=== PATIENT | male | born 1990 | race Caucasian/White ===

== ENCOUNTER 2017-01-19 13:56 | Emergency (ER) | payer SELFPAY ==
[2017-01-19] MEDS ORDERED: Ibuprofen TAB* 600 MG PO ONE (14:21)
--- NOTE | 2017-01-19 14:55 | RAD ---
Indication: Right knee pain. 4 views of the right knee demonstrates no fracture. The medial pole of the patella demonstrates increased lucency. No joint effusion is noted. IMPRESSION: No fracture is identified.
--- NOTE | 2017-01-19 15:36 | ED ---
Lower Extremity - History of Current Complaint Chief Complaint: EDExtremityLower Stated Complaint: RT KNEE INJURY Time Seen by Provider: 01/19/17 14:21 Pain Intensity: 8 - Allergies/Home Medications Allergies/Adverse Reactions: Allergies Allergy/AdvReac Type Severity Reaction Status Date / Time No Known Allergies Allergy Verified 01/19/17 13:59 PMH/Surg Hx/FS Hx/Imm Hx Cardiovascular History: Denies: Hx Pacemaker/ICD Musculoskeletal History: Reports: Hx Arthritis - right knee Sensory History: Reports: Hx Contacts or Glasses - glasses Denies: Hx Hearing Aid Opthamlomology History: Reports: Hx Contacts or Glasses - glasses Psychiatric History: Denies: Hx Panic Disorder - Surgical History Surgery Procedure, Year, and Place: RT KNEE ARTHROSCOPY PATELLA SURGERY FOR [place]LOCATION 2007[place] [facility] [place] Anesthesia Reactions: No Infectious Disease History: No Infectious Disease History: Denies: Traveled Outside the [place] in Last 30 Days - Social History Alcohol Use: None Substance Use Type: Reports: None Smoking Status (MU): Former Smoker Physical Exam Vital Signs On Initial Exam: Initial Vitals Temp Pulse Resp BP Pulse Ox 98.4 F 80 18 128/81 98 01/19/17 13:59 01/19/17 13:59 01/19/17 13:59 01/19/17 13:59 01/19/17 13:59 BP improved: 128/81 Diagnostics - Vital Signs Vital Signs Temp Pulse Resp BP Pulse Ox 01/19/17 14:23 99 F 84 16 148/82 98 01/19/17 13:59 98.4 F 80 18 128/81 98 - Laboratory Lab Statement: Any lab studies that have been ordered have been reviewed, and results considered in the medical decision making process. - Radiology right knee Xray Interpretation: No Acute Changes - No fracture is identified. Radiology Interpretation Completed By: Radiologist Lower Extremity Course/Dx - Diagnoses Provider Diagnoses: Right knee sprain, Right knee pain Discharge - Discharge Plan Condition: Stable Disposition: HOME Patient Education Materials: Knee Sprain (ED), Knee Immobilizer (ED) Referrals: Faraz Orellana MD [Primary Care Provider] - Faraz Henao MD [Medical Doctor] - Additional Instructions: Wear knee immobilizer and use crutches until symptoms improve. Take ibuprofen 600-800mg every 6-8 hours, with food, for pain and inflammation. Follow up and make an appointment with ortho if symptoms worsen or do not improve. Rest, ice and elevate. If new symptoms or worsening symptoms please seek medical attention promptly.
[2017-01-19 16:43] VITALS: BP 133/74
== END 2017-01-19 16:44 | disposition home or self-care (01) ==
LOC: ED 13:56
DX: S83.91XA Sprain of unspecified site of right knee, initial encounter (principal); M25.561 Pain in right knee; X58.XXXA Exposure to other specified factors, initial encounter; Y93.9 Activity, unspecified; Y92.9 Unspecified place or not applicable
CPT/HCPCS: 99282; A9270-GY

== ENCOUNTER 2017-03-31 21:25 | Emergency (ER) | payer SELFPAY ==
[2017-03-31] MEDS ORDERED: Amoxicillin/Clavulanate TAB* 875 MG PO ONE (21:54)
[2017-03-31] MEDS ORDERED: predniSONE TAB* 20 MG PO ONE (21:54)
[2017-03-31] MEDS ORDERED: Ibuprofen TAB* 800 MG PO ONE (21:54)
--- NOTE | 2017-03-31 22:02 | ED ---
Juanita Carrillo Jason, scribed for Beryl Breen MD on 03/31/17 at 2150 . Throat Pain/Nasal Congestion - HPI Summary HPI Summary: This patient is a 26 year old M presenting to [facility] [place] accompanied by female with a chief complaint of sore throat since 2 days ago. The patient states that he has a sore throat and noticed white spots on the back of his throat. The patient rates the pain 6/10 in severity. Symptoms aggravated by nothing. Symptoms alleviated by nothing. Patient reports chills. Patient denies fever. - History of Current Complaint Chief Complaint: EDThroatPain Time Seen by Provider: 03/31/17 21:44 Hx Obtained From: Patient Onset/Duration: Gradual Onset, Lasting Days - since 2 days ago, Still Present Associated Signs And Symptoms: Positive: Negative - fever Cough: None - Allergies/Home Medications Allergies/Adverse Reactions: Allergies Allergy/AdvReac Type Severity Reaction Status Date / Time No Known Allergies Allergy Verified 03/31/17 21:29 PMH/Surg Hx/FS Hx/Imm Hx Previously Healthy: No Endocrine/Hematology History: Denies: Hx Diabetes Cardiovascular History: Denies: Hx Pacemaker/ICD Musculoskeletal History: Reports: Hx Arthritis - right knee, Other Musculoskeletal History - knee surgery/injury patella Sensory History: Reports: Hx Contacts or Glasses - glasses Denies: Hx Hearing Aid Opthamlomology History: Reports: Hx Contacts or Glasses - glasses Psychiatric History: Denies: Hx Panic Disorder - Surgical History Surgery Procedure, Year, and Place: RT KNEE ARTHROSCOPY PATELLA SURGERY FOR DISLOCATION 2007- [facility] [place] Anesthesia Reactions: No Infectious Disease History: No Infectious Disease History: Denies: Traveled Outside the [place] in Last 30 Days - Family History Known Family History: Positive: Hypertension, Diabetes - Social History Occupation: Unemployed Lives: Alone Alcohol Use: None Substance Use Type: Reports: None Smoking Status (MU): Former Smoker Review of Systems Positive: Chills. Negative: Fever Positive: Sore Throat All Other Systems Reviewed And Are Negative: Yes Physical Exam - Summary Physical Exam Summary: VITAL SIGNS: Reviewed. GENERAL: ~Patient is a well-developed and nourished male who is lying comfortable in the stretcher. Patient is not in any acute respiratory distress. HEAD AND FACE: No signs of trauma. No ecchymosis, hematomas or skull depressions. No sinus tenderness. EYES: PERRLA, EOMI x 2, No injected conjunctiva, no nystagmus. EARS: Hearing grossly intact. Ear canals and tympanic membranes are within normal limits. MOUTH: Oropharynx within normal limits. Pharyngeal hyperemia with exudate. NECK: Supple, trachea is midline, no adenopathy, no JVD, no carotid bruit, no c- spine tenderness, neck with full ROM. CHEST: Symmetric, no tenderness at palpation LUNGS: Clear to auscultation bilaterally. No wheezing or crackles. CVS: Regular rate and rhythm, S1 and S2 present, no murmurs or gallops appreciated. ABDOMEN: Soft, non-tender. No signs of distention. No rebound no guarding, and no masses palpated. Bowel sounds are normal. EXTREMITIES: FROM in all major joints, no edema, no cyanosis or clubbing. NEURO: Alert and oriented x 3. No acute neurological deficits. Speech is normal and follows commands. SKIN: Dry and warm Triage Information Reviewed: Yes Vital Signs On Initial Exam: Initial Vitals Temp Pulse Resp BP Pulse Ox 98.2 F 84 14 137/86 100 03/31/17 21:27 03/31/17 21:27 03/31/17 21:27 03/31/17 21:27 03/31/17 21:27 Vital Signs Reviewed: Yes Diagnostics - Vital Signs Vital Signs Temp Pulse Resp BP Pulse Ox 03/31/17 21:27 98.2 F 84 14 137/86 100 - Laboratory Lab Statement: Any lab studies that have been ordered have been reviewed, and results considered in the medical decision making process. EENT Course/Dx - Course Course Of Treatment: This patient is a 26 year old M presenting to [facility] [place] accompanied by female with a chief complaint of sore throat since 2 days ago. The patient states that he has a sore throat and noticed white spots on the back of his throat. The patient rates the pain 6/10 in severity. Symptoms aggravated by nothing. Symptoms alleviated by nothing. Patient reports chills. Patient denies fever. Assessment/Plan: In the ED course the patient was given Amoxicillin, ibuprofen, and prednisone. Patient will be discharged and follow up from PCP. The patient is agreeable with this plan. Dx of acute pharyngitis. - Diagnoses Provider Diagnoses: Acute pharyngitis Discharge - Discharge Plan Condition: Stable Disposition: HOME Referrals: Faraz Orellana MD [Primary Care Provider] - 3 Days The documentation as recorded by the Juanita edgar Jason accurately reflects the service I personally performed and the decisions made by me, Beryl Breen MD.
[2017-03-31 22:16] VITALS: BP 139/100
== END 2017-03-31 22:13 | disposition home or self-care (01) ==
LOC: ED 21:25
DX: J02.9 Acute pharyngitis, unspecified (principal); R68.83 Chills (without fever); Z87.891 Personal history of nicotine dependence
CPT/HCPCS: 99282; A9270-GY; J7512

== ENCOUNTER → 2018-07-30 19:05 | Emergency (ER) | payer SELFPAY ==
--- NOTE | 2018-07-30 20:29 | ED ---
Upper Extremity Pain - HPI Summary HPI Summary: 27-year-old male presents with right hand injury a week ago. He states that she got jammed by a wheelchair. Hurts over his fourth and fifth metacarpal. He admits to occasional numbness and tingling. No decrease in quality review trainer strength. No weakness. He is right-handed. Denies any previous fracture to the area. Is not currently working. Has been taking ibuprofen and placing ice on the area. - History of Current Complaint Chief Complaint: EDExtremityUpper Stated Complaint: "RT HAND INJURY PER PT" Time Seen by Provider: 07/30/18 19:51 - Allergies/Home Medications Allergies/Adverse Reactions: Allergies Allergy/AdvReac Type Severity Reaction Status Date / Time No Known Allergies Allergy Verified 03/31/17 21:29 Home Medications: Home Medications NK [No Home Medications Reported] 07/30/18 [History Confirmed 07/30/18] PMH/Surg Hx/FS Hx/Imm Hx Endocrine/Hematology History: Denies: Hx Diabetes Cardiovascular History: Denies: Hx Pacemaker/ICD Musculoskeletal History: Reports: Hx Arthritis - right knee, Other Musculoskeletal History - knee surgery/injury patella Sensory History: Reports: Hx Contacts or Glasses - glasses Denies: Hx Hearing Aid Opthamlomology History: Reports: Hx Contacts or Glasses - glasses Psychiatric History: Denies: Hx Panic Disorder - Surgical History Surgery Procedure, Year, and Place: RT KNEE ARTHROSCOPY [place]ATELLA [place] [facility] [place] Anesthesia Reactions: No Infectious Disease History: No Infectious Disease History: Denies: Traveled Outside the [place] in Last 30 Days - Family History Known Family History: Positive: None, Hypertension, Diabetes - Social History Alcohol Use: None Substance Use Type: Reports: None Smoking Status (MU): Former Smoker Review of Systems Negative: Fever Negative: Chest Pain Negative: Shortness Of Breath Positive: Myalgia - right hand pain All Other Systems Reviewed And Are Negative: Yes Physical Exam Triage Information Reviewed: Yes Vital Signs On Initial Exam: Initial Vitals Temp Pulse Resp BP Pulse Ox 99.3 F 75 16 134/77 98 07/30/18 19:18 07/30/18 19:18 07/30/18 19:18 07/30/18 19:18 07/30/18 19:18 Vital Signs Reviewed: Yes Appearance: Positive: Well-Appearing Skin: Positive: Warm, Dry Head/Face: Positive: Normal Head/Face Inspection Eyes: Positive: Normal, Conjunctiva Clear ENT: Positive: Pharynx normal Respiratory/Lung Sounds: Positive: Clear to Auscultation, Breath Sounds Present Cardiovascular: Positive: Normal, RRR Musculoskeletal: Positive: Strength/ROM Intact - right hand, Other - tenderness on 4-5 finger right, capillary refill<2 secs, sensation grossly intact Neurological: Positive: Normal Psychiatric: Positive: Normal Diagnostics - Vital Signs Vital Signs Temp Pulse Resp BP Pulse Ox 07/30/18 19:18 99.3 F 75 16 134/77 98 - Laboratory Lab Statement: Any lab studies that have been ordered have been reviewed, and results considered in the medical decision making process. - Radiology hand Radiology Interpretation Completed By: ED Physician Summary of Radiographic Findings: no fracture Course/Dx - Course Course Of Treatment: 27-year-old male presents with right hand injury a week ago. He states that she got jammed by a wheelchair. Hurts over his fourth and fifth metacarpal. He admits to occasional numbness and tingling. No decrease in quality review trainer strength. No weakness. He is right-handed. Denies any previous fracture to the area. Is not currently working. Has been taking ibuprofen and placing ice on the area. On exam tenderness over fourth and fifth metacarpal. Neurovascularly intact. X-ray normal. Gave Jose. Told to follow up primary. Patient understands and agrees plan. - Diagnoses Differential Diagnosis/HQI/PQRI: Positive: Fracture (Closed), Strain, Sprain Provider Diagnoses: Injury of right hand Discharge - Sign-Out/Discharge Documenting (check all that apply): Patient Departure Patient Received Moderate/Deep Sedation with Procedure: No - Discharge Plan Condition: Good Disposition: HOME Patient Education Materials: R.I.C.E. Treatment (ED) Referrals: Faraz Orellana MD [Primary Care Provider] - Additional Instructions: Take Tylenol or ibuprofen every 6 hours as needed for pain Apply ice, rest, elevate Follow up with primary care physician within 5 days Return to ED if develop any new or worsening symptoms - Billing Disposition and Condition Condition: GOOD Disposition: Home
[2018-07-30 20:43] VITALS: BP 115/71
== END | disposition home or self-care (01) ==
LOC: ED 19:05
DX: S69.91XA Unspecified injury of right wrist, hand and finger(s), initial encounter (principal); W23.0XXA Caught, crushed, jammed, or pinched between moving objects, initial encounter; Y92.9 Unspecified place or not applicable; Z87.891 Personal history of nicotine dependence
CPT/HCPCS: 99282

== ENCOUNTER 2019-05-31 19:26 | Emergency (ER) | payer SELFPAY ==
--- NOTE | 2019-05-31 20:04 | ED ---
Back Pain - HPI Summary HPI Summary: 28-year-old male with no significant past medical history presents to the emergency department today complaining of low and mid back pain as well as right shoulder pain and neck pain after "pulling around 800 pounds yesterday at work". Patient states he was lifting multiple heavy objects at work and immediately felt sharp onset of pain. Patient also endorses shooting pain into his buttocks but no numbness or tingling of his legs. Patient denies incontinence or difficulty with urination or passing bowel movements. Patient states that he thinks he "dislocated his ribs". Patient states he has not had any recent trauma. Patient is ambulatory and has full range of motion of the neck, shoulders, back. Patient otherwise feels well and denies fever, chest pain, abdominal pain, shortness breath. - History of Current Complaint Chief Complaint: EDBackInjuryPain Stated Complaint: L SIDED BACK PAIN PER PT Time Seen by Provider: 05/31/19 20:04 Hx Obtained From: Patient Onset/Duration: Sudden Onset Onset/Duration: Started Days Ago Timing: Constant Severity Initially: Severe Severity Currently: Severe Pain Intensity: 8 Pain Scale Used: 0-10 Numeric Character: Aching, Stiffness Aggravating Symptom(s): Movement, Lifting, Bending, Walking Alleviating Symptom(s): Rest Associated Signs And Symptoms: Negative: Redness, Fever, Weakness, Tingling, Bladder Incontinence, Bowel Incontinence, Pain with Weight Bearing - Allergies/Home Medications Allergies/Adverse Reactions: Allergies Allergy/AdvReac Type Severity Reaction Status Date / Time No Known Allergies Allergy Verified 03/31/17 21:29 PMH/Surg Hx/FS Hx/Imm Hx Endocrine/Hematology History: Denies: Hx Diabetes Cardiovascular History: Denies: Hx Pacemaker/ICD Musculoskeletal History: Reports: Hx Arthritis - right knee, Other Musculoskeletal History - knee surgery/injury patella Sensory History: Reports: Hx Contacts or Glasses - glasses Denies: Hx Hearing Aid Opthamlomology History: Reports: Hx Contacts or Glasses - glasses Psychiatric History: Denies: Hx Panic Disorder - Surgical History Surgery Procedure, Year, and Place: RT KNEE ARTHROSCOPY PATELLA SURGERY FOR DISLOCATION 2007- [facility] [place] Hx Anesthesia Reactions: No Infectious Disease History: No Infectious Disease History: Denies: Traveled Outside the [place] in Last 30 Days - Family History Known Family History: Positive: None, Hypertension, Diabetes - Social History Alcohol Use: None Substance Use Type: Reports: None Smoking Status (MU): Former Smoker Review of Systems Constitutional: Negative Eyes: Negative ENT: Negative Cardiovascular: Negative Respiratory: Negative Gastrointestinal: Negative Genitourinary: Negative Positive: Arthralgia, Myalgia, Decreased ROM Skin: Negative Neurological: Negative Psychological: Normal All Other Systems Reviewed And Are Negative: Yes Physical Exam - Summary Physical Exam Summary: Patient is able to cannulate. Patient has full range of motion of the upper extremities and neck. Patient has full range of motion of the spine. Patient has no symptoms of radiculopathy. He has tenderness with palpation of the paraspinal muscles of the thoracic and lumbar spine. Patient has mild tenderness with palpation of the right paraspinal muscles of the neck. No midline tenderness. No ecchymosis, edema, erythema. Triage Information Reviewed: Yes Vital Signs On Initial Exam: Initial Vitals Temp Pulse Resp BP Pulse Ox 98.0 F 86 18 134/82 98 05/31/19 19:40 05/31/19 19:40 05/31/19 19:40 05/31/19 19:40 05/31/19 19:40 Vital Signs Reviewed: Yes Appearance: Positive: Well-Appearing, No Pain Distress, Well-Nourished Skin: Positive: Warm, Skin Color Reflects Adequate Perfusion Eyes: Positive: EOMI, ALIS ENT: Positive: Hearing grossly normal Respiratory/Lung Sounds: Positive: Clear to Auscultation, Breath Sounds Present Cardiovascular: Positive: RRR, S1, S2 Abdomen Description: Positive: Nontender, Soft Bowel Sounds: Positive: Present Musculoskeletal: Positive: Strength/ROM Intact Neurological: Positive: Sensory/Motor Intact, Alert, Oriented to Person Place, Time, Normal Gait, Speech Normal Psychiatric: Positive: Normal, Affect/Mood Appropriate AVPU Assessment: Alert Procedures - Sedation Patient Received Moderate/Deep Sedation with Procedure: No Diagnostics - Vital Signs Vital Signs Temp Pulse Resp BP Pulse Ox 05/31/19 19:40 98.0 F 86 18 134/82 98 - Laboratory Lab Statement: Any lab studies that have been ordered have been reviewed, and results considered in the medical decision making process. Back Pain Course/Dx - Course Course Of Treatment: Patient was evaluated in the emergency department today for back pain. Patient seen and examined his vitals are stable he is afebrile. Patient had no evidence of cauda equina or epidural abscess. Patient was able to ambulate and had full range of motion of the upper extremities, neck, back. Patient was given IM Toradol as it appeared he had mechanical back pain. He was told to take ibuprofen and apply heat to the area. Patient was discharged with outpatient follow-up. - Diagnoses Differential Diagnosis/HQI/PQRI: Positive: Cauda Equina Syndrome, Compressive Cord Syndrome, Epidural Abscess, Fracture, Herniated Disc, Strain, Sprain Provider Diagnoses: Mechanical back pain Discharge ED - Sign-Out/Discharge Documenting (check all that apply): Patient Departure - Discharge Plan Condition: Stable Disposition: HOME Patient Education Materials: Back Pain (ED) Forms: *Work Release Referrals: Faraz Orellana MD [Primary Care Provider] - 5 Days Additional Instructions: You were seen in the emergency department today for back pain. Please follow up with your primary care physician in 5 days for further evaluation and management of your injury. Please take for your symptoms: * Ibuprofen 600mg three times daily with meals for pain. (Anti Inflammatory) Most people with an episode of low back pain do not have a serious medical problem, and can try simple treatments such as: Staying active The best thing you can do is to stay as active as possible. People with low back pain recover faster if they stay active. If your pain is severe, you might need to rest for a day or 2. But it's important to get back to walking and moving as soon as possible. While you should avoid heavy lifting and sports while your back hurts, try to keep doing your normal daily activities. Heat Some people find that it helps to use a heating pad or heated wrap. Be careful to avoid high heat settings to prevent skin cheema. Spinal manipulation This is when a chiropractor, physical therapist, or other professional moves or "adjusts" the joints of your back. If you want to try this, talk to your doctor or nurse first. Acupuncture This is when someone who knows traditional [place] medicine inserts tiny needles into your body to block pain signals. Massage While back pain usually goes away within a few weeks, some people do continue to have pain for longer. In this case, additional treatments might include: Self care This involves being aware of your pain. While you should rest when you need to, it's important to stay active as much as you can. Things like applying heat and doing gentle stretches can help you feel better, too. Physical therapy A physical therapist is an exercise expert who can teach you stretches and movements to help strengthen your muscles. The goal is to relieve pain but also help you get back to your normal activities. Exercises you can try include walking, swimming, or using an exercise bike. Some people also find that [employer] Chi or yoga can help with their back pain. Finding activities you enjoy can help you stay active. Reducing stress Some people find that it helps to try something called "mindfulness-based stress reduction." This involves going to a group program to practice relaxation and meditation. If your back pain is making you feel anxious or depressed, talk to your doctor or nurse. There are other treatments that can help with these problems. Only a small number of people end up needing surgery to treat back pain. - Billing Disposition and Condition Condition: STABLE Disposition: Home
[2019-05-31] MEDS ORDERED: Ketorolac *IM* INJ* 60 MG/2 ML VIAL IM ONE (20:16)
[2019-05-31 20:56] VITALS: BP 142/84
== END 2019-05-31 20:25 | disposition home or self-care (01) ==
LOC: ED 19:26
DX: M54.9 Dorsalgia, unspecified (principal); Z87.891 Personal history of nicotine dependence
CPT/HCPCS: 96372; 99281; J1885

== ENCOUNTER 2021-10-22 08:16 | Inpatient (IN) ==
[2021-10-22 09:05] LABS: ABS Basophils 0.1 10^3/ul (0-0.2); ABS Eosinophils 0.9 10^3/ul (0-0.6); ABS Monocytes 1.2 10^3/ul (0-0.8); ABS Neutrophils 10.1 10^3/ul (1.5-7.7); Eosinophil % 5.3 %; Hematocrit 52 % (42-52); Hemoglobin 17.4 g/dL (14.0-18.0); Lymphocyte % 24.3 %; Mean Corpuscular HGB Conc 33 g/dL (31-36); Mean Corpuscular Hemoglobin 29 pg (27-31); Mean Corpuscular Volume 87 fL (80-94); Mean Platelet Volume 9.8 fL (7.4-10.4); Nucleated Red Blood Cells % 0.3; Platelet Count 260 10^3/uL (150-450); Red Blood Count 5.95 10^6 /uL (4.18-5.48); Red Cell Distribution Width 14 % (10-15); White Blood Count 16.3 10^3/uL (3.5-10.8)
[2021-10-22 09:17] LABS: Urine Appearance Clear; Urine Bacteria Absent (Absent); Urine Bilirubin Negative (Negative); Urine Blood Negative (Negative); Urine Color Yellow; Urine Glucose Negative (Negative); Urine Ketones Negative (Negative); Urine Nitrite Negative (Negative); Urine Protein Negative (Negative); Urine Red Blood Cell Absent (Absent); Urine Specific Gravity 1.014 (1.002-1.030); Urine Urobilinogen Negative (Negative); Urine White Blood Cell Trace(0-5/hpf) (Absent)
[2021-10-22 09:24] LABS: Urine Benzodiazepine Screen None Detected (None Detect); Urine Cannabinoids Screen Presumptive Positive (None Detect); Urine Opiates Screen None Detected (None Detect)
[2021-10-22 09:50] LABS: ALT 30 U/L (7-52); AST 22 U/L (13-39); Acetaminophen < 15 mcg/mL; Albumin 4.8 g/dL (3.2-5.2); Albumin/Globulin Ratio 1.8 (1-3); Alcohol, S < 13 mg/dL (<13); Alkaline Phosphatase 150 U/L (35-149); Anion Gap 8 mmol/L (2-11); Blood Urea Nitrogen 7 mg/dL (6-24); CO2 Carbon Dioxide 27 mmol/L (22-32); Calcium 9.7 mg/dL (8.6-10.3); Chloride 105 mmol/L (101-111); Globulin 2.7 g/dL (2-4); Glucose 79 mg/dL (70-100); Potassium 4.6 mmol/L (3.5-5.0); Salicylate < 2.50 mg/dL (<30); Sodium 140 mmol/L (135-145); Total Protein 7.5 g/dL (6.4-8.9); eGFR CKD-EPI 80.5 (>60)
[2021-10-22 09:54] LABS: TSH Ultra Thyroid Stim Horm 8.71 mcIU/mL (0.34-5.60)
[2021-10-22 15:58] LABS: Free T4 0.93 ng/dL (0.61-1.12)
[2021-10-22] MEDS ORDERED: Al Hydrox/Mg Hydrox/Simet LIQ 30 ML UDC PO PRN (16:49)
[2021-10-22] MEDS ORDERED: Nicotine GUM 2MG FRUIT FLAVOR PO PRN (17:00)
[2021-10-23] MEDS: Vitamin THERAPEUTIC TAB PO SCH (08:03)
[2021-10-23 08:56] LABS: HDL Cholesterol 39.7 mg/dL
[2021-10-23] MEDS ORDERED: Butalb/Acetamin/Caff TAB 325-50-40MG PO PRN (14:33)
[2021-10-24] MEDS: Vitamin THERAPEUTIC TAB PO SCH (07:17)
[2021-10-24 08:37] LABS: Albumin 4.7 g/dL (3.2-5.2); Albumin/Globulin Ratio 1.7 (1-3); Calcium 9.9 mg/dL (8.6-10.3); Globulin 2.7 g/dL (2-4); Potassium 4.4 mmol/L (3.5-5.0); Total Bilirubin 0.6 mg/dL (0.2-1.0); Total Protein 7.4 g/dL (6.4-8.9); eGFR CKD-EPI 82.9 (>60)
[2021-10-25] MEDS: Vitamin THERAPEUTIC TAB PO SCH (07:30)
[2021-10-26] MEDS: Vitamin THERAPEUTIC TAB PO SCH (07:17)
[2021-10-27] MEDS: Vitamin THERAPEUTIC TAB PO SCH (07:33)
[2021-10-27 07:50] VITALS: BP 126/84
== END 2021-10-27 12:53 | disposition home or self-care (01) | DRG 753 ==
LOC: ED 08:16 → BSU 17:18
PROVIDERS: ADMIT Psychiatry & Neurology Psychiatry; ATTEND Student in an Organized Health Care Education/Training Program

== ENCOUNTER 2021-11-01 09:55 | Inpatient (IN) ==
[2021-11-01 11:06] LABS: ABS Basophils 0.1 10^3/ul (0-0.2); ABS Eosinophils 0.6 10^3/ul (0-0.6); ABS Lymphocytes 2.3 10^3/ul (1.0-4.8); ABS Monocytes 0.7 10^3/ul (0-0.8); ABS Neutrophils 5.1 10^3/ul (1.5-7.7); Eosinophil % 6.9 %; Hematocrit 46 % (42-52); Hemoglobin 15.4 g/dL (14.0-18.0); Lymphocyte % 26.1 %; Mean Corpuscular HGB Conc 34 g/dL (31-36); Mean Corpuscular Hemoglobin 30 pg (27-31); Mean Corpuscular Volume 87 fL (80-94); Nucleated Red Blood Cells % 0.1; Platelet Count 219 10^3/uL (150-450); Red Blood Count 5.21 10^6 /uL (4.18-5.48); Red Cell Distribution Width 13 % (10-15); White Blood Count 8.7 10^3/uL (3.5-10.8)
[2021-11-01 11:12] LABS: Urine Appearance Clear; Urine Bilirubin Negative (Negative); Urine Blood Negative (Negative); Urine Color Yellow; Urine Glucose Negative (Negative); Urine Ketones Negative (Negative); Urine Nitrite Negative (Negative); Urine Protein Negative (Negative); Urine Specific Gravity 1.024 (1.002-1.030); Urine Urobilinogen Negative (Negative)
[2021-11-01 11:21] LABS: Urine Benzodiazepine Screen None Detected (None Detect); Urine Cannabinoids Screen Presumptive Positive (None Detect); Urine Opiates Screen None Detected (None Detect)
[2021-11-01 11:54] LABS: ALT 44 U/L (7-52); AST 18 U/L (13-39); Acetaminophen < 15 mcg/mL; Albumin 4.4 g/dL (3.2-5.2); Albumin/Globulin Ratio 1.9 (1-3); Alcohol, S < 13 mg/dL (<13); Alkaline Phosphatase 129 U/L (35-149); Anion Gap 5 mmol/L (2-11); Blood Urea Nitrogen 13 mg/dL (6-24); CO2 Carbon Dioxide 27 mmol/L (22-32); Calcium 9.3 mg/dL (8.6-10.3); Chloride 107 mmol/L (101-111); Globulin 2.3 g/dL (2-4); Glucose 95 mg/dL (70-100); Potassium 4.4 mmol/L (3.5-5.0); Salicylate < 2.50 mg/dL (<30); Sodium 139 mmol/L (135-145); Total Protein 6.7 g/dL (6.4-8.9); eGFR CKD-EPI 95.1 (>60)
[2021-11-01 12:07] LABS: TSH Ultra Thyroid Stim Horm 0.96 mcIU/mL (0.34-5.60)
[2021-11-01] MEDS ORDERED: Al Hydrox/Mg Hydrox/Simet LIQ 30 ML UDC PO PRN (19:58)
[2021-11-02 07:32] LABS: HDL Cholesterol 36.3 mg/dL
[2021-11-02] MEDS ORDERED: Vitamin THERAPEUTIC TAB PO SCH (09:00)
[2021-11-02 09:40] VITALS: BP 126/84
== END 2021-11-02 13:15 | disposition home or self-care (01) | DRG 754 ==
LOC: ED 09:55 → BSU 14:01
PROVIDERS: ADMIT Psychiatry & Neurology Psychiatry; ATTEND Student in an Organized Health Care Education/Training Program